=== PATIENT | male | born 1980 | race African-American/Black ===

== ENCOUNTER 2019-10-30 19:30 | Inpatient (IN) | payer MEDICAID ==
[~2019-10-30] VITALS: Ht 177.8 cm; Wt 55.3 kg
[2019-10-30 19:49] LABS: BASOPHILS % (AUTO) 0.9 % (0.0-2.0); EOSINOPHILS % (AUTO) 4.9 % (1.0-6.0); HEMATOCRIT 43.3 % (41-53); HEMOGLOBIN 14.9 g/dL (13.5-17.5); LYMPHOCYTES # (AUTO) 3.5 K/uL (1.0-4.8); LYMPHOCYTES % (AUTO) 33.3 % (22.0-44.0); MEAN CORPUSCULAR HGB CONC 34.4 G/dL (31.0-37.0); MEAN CORPUSCULAR VOLUME 90 fL (80-100); MONOCYTES % (AUTO) 9.5 % (2.0-9.0); NEUTROPHILS # (AUTO) 5.5 K/uL (1.8-7.7); NEUTROPHILS % (AUTO) 51.4 % (40.0-70.0); PLATELET COUNT (AUTO) 362 K/uL (150-450); RED CELL DISTRIBUTION WIDTH 13.8 % (11.5-14.5)
[2019-10-30] MEDS ORDERED: QUET200T PO (19:54)
[2019-10-30] MEDS ORDERED: BUSP10TA23 PO (19:54)
[2019-10-30] MEDS ORDERED: GABA-531 PO (19:54)
[2019-10-30 19:57] LABS: ANION GAP 16 mmol/L (8-16); CALCIUM, TOTAL 9.5 mg/dL (8.8-10.5); CARBON DIOXIDE 23 mmol/L (22-29); CHLORIDE 98 mmol/L (98-107); CREATININE 1.46 mg/dL (0.60-1.30); GLOMERULAR FILTR. RATE CALC > 60 mL/min (>60); GLUCOSE,RANDOM 112 mg/dL (70-110); POTASSIUM 3.5 mmol/L (3.5-5.1); SODIUM SERUM 137 mmol/L (136-145); UREA NITROGEN, BLOOD 13 mg/dL (7-18)
[2019-10-30 20:03] LABS: ALANINE AMINOTRANSFERASE 36 U/L (12-78); ALBUMIN 4.3 g/dL (3.4-5.0); ALKALINE PHOSPHATASE 125 U/L (46-116); ASPARTATE AMINOTRANSFERASE 9 U/L (15-37); BILIRUBIN,TOTAL 0.3 mg/dL (0.1-1.0); TOTAL PROTEIN, SERUM 8.6 g/dL (6.4-8.2)
[2019-10-30] MEDS ORDERED: HALOPERIDOL LACTATE 5 MG/ML VIAL IVP ONE (20:45)
[2019-10-30] MEDS ORDERED: LORazepam 2 MG/ML VIAL IM ONE (20:45)
[2019-10-30] MEDS ORDERED: SODIUM CHLORIDE 0.9% 2,000 ML IV ONE (20:45)
[2019-10-30] MEDS ORDERED: HALOPERIDOL LACTATE 5 MG/ML VIAL IM ONE (20:45)
[2019-10-30] MEDS ORDERED: LORazepam 2 MG/ML VIAL IVP ONE (20:45)
[2019-10-30] MEDS ORDERED: ASPIRIN 325 MG TABLET PO ONE (20:45)
[2019-10-30 21:21] LABS: CREATINE KINASE, TOTAL ONLY 283 U/L (39-308)
[2019-10-31] MEDS ORDERED: HALOPERIDOL 5 MG TABLET PO PRN
[2019-10-31 01:52] VITALS: BP 131/81
[2019-10-31] MEDS: LORazepam 2 MG TABLET PO PRN ×4 (04:13→17:30)
[2019-10-31] MEDS ORDERED: PNEUMOCOCCAL VACCINE POLYVALENT 0.5 ML VIAL [PPSV23] IM ONE (04:45)
[2019-10-31] MEDS ORDERED: ACETAMINOPHEN 325 MG TABLET PO PRN (08:30)
[2019-10-31] MEDS: AMOX TR/POT CLAV 875 MG/125 MG TABLET PO SCH ×2 (09:58→16:08)
[2019-10-31 10:05] VITALS: BP 124/87
[2019-10-31] MEDS ORDERED: QUET200T5 PO (13:56)
[2019-10-31] MEDS: IBUPROFEN 600 MG TABLET PO PRN (14:33)
[2019-10-31] MEDS: BusPIRone HCL 10 MG TABLET PO SCH (16:08)
[2019-10-31] MEDS: GABAPENTIN 300 MG CAPSULE PO SCH (16:08)
[2019-10-31 17:00] VITALS: BP 146/95
[2019-10-31] MEDS: QUEtiapine FUMARATE 200 MG ER TABLET PO SCH (20:41)
[2019-10-31] MEDS ORDERED: QUEtiapine FUMARATE 200 MG ER TABLET PO SCH (21:00)
[2019-10-31] MEDS: ZOLPIDEM TARTRATE 10 MG TABLET PO PRN (21:21)
[2019-11-01 02:42] VITALS: BP 146/111
[2019-11-01] MEDS: LORazepam 2 MG TABLET PO PRN ×4 (04:31→21:24)
[2019-11-01] MEDS: GABAPENTIN 300 MG CAPSULE PO SCH ×3 (08:01→16:22)
[2019-11-01] MEDS: BusPIRone HCL 10 MG TABLET PO SCH ×3 (08:02→16:23)
[2019-11-01] MEDS: AMOX TR/POT CLAV 875 MG/125 MG TABLET PO SCH ×2 (08:02→16:23)
[2019-11-01 08:42] VITALS: BP 129/94
[2019-11-01] MEDS: NICOTINE 21 MG/24 HOUR PATCH TD SCH (14:23)
[2019-11-01 17:30] VITALS: BP 142/90
[2019-11-01] MEDS: QUEtiapine FUMARATE 200 MG ER TABLET PO SCH (21:22)
[2019-11-02 08:31] VITALS: BP 102/51
[2019-11-02] MEDS: GABAPENTIN 300 MG CAPSULE PO SCH ×3 (09:21→16:19)
[2019-11-02] MEDS: AMOX TR/POT CLAV 875 MG/125 MG TABLET PO SCH ×2 (09:21→16:18)
[2019-11-02] MEDS: BusPIRone HCL 10 MG TABLET PO SCH ×3 (09:22→16:19)
[2019-11-02] MEDS: LORazepam 2 MG TABLET PO PRN ×2 (09:25→13:43)
[2019-11-02] MEDS: NICOTINE 21 MG/24 HOUR PATCH TD SCH (09:27)
[2019-11-02] MEDS: PANTOPRAZOLE SODIUM 40 MG DR TABLET PO SCH (13:59)
[2019-11-02] MEDS: HydrOXYzine PAMOATE 25 MG CAPSULE PO PRN (16:51)
[2019-11-02 17:00] VITALS: BP 137/93
[2019-11-02] MEDS: QUEtiapine FUMARATE 200 MG ER TABLET PO SCH (20:11)
[2019-11-03 00:36] VITALS: BP 155/85
[2019-11-03] MEDS: IBUPROFEN 600 MG TABLET PO PRN ×2 (00:39→16:45)
[2019-11-03] MEDS: ZOLPIDEM TARTRATE 10 MG TABLET PO PRN (00:42)
[2019-11-03 08:00] VITALS: BP 132/90
[2019-11-03] MEDS: NICOTINE 21 MG/24 HOUR PATCH TD SCH (08:53)
[2019-11-03] MEDS: GABAPENTIN 300 MG CAPSULE PO SCH ×3 (08:54→16:45)
[2019-11-03] MEDS: BusPIRone HCL 10 MG TABLET PO SCH ×3 (08:54→16:46)
[2019-11-03] MEDS: AMOX TR/POT CLAV 875 MG/125 MG TABLET PO SCH ×2 (08:54→16:46)
[2019-11-03] MEDS: PANTOPRAZOLE SODIUM 40 MG DR TABLET PO SCH (08:54)
[2019-11-03 16:40] VITALS: BP 141/98
[2019-11-03] MEDS: QUEtiapine FUMARATE 200 MG ER TABLET PO SCH (20:16)
[2019-11-03] MEDS: HydrOXYzine PAMOATE 25 MG CAPSULE PO PRN (20:23)
== END 2019-11-03 21:40 | disposition home or self-care (01) | DRG 885 ==
LOC: EMS 19:32 → 3EI 23:30
PROVIDERS: ADMIT Psychiatry & Neurology Psychiatry; ATTEND Psychiatry & Neurology Psychiatry
DX: F25.1 Schizoaffective disorder, depressive type (principal); R45.851 Suicidal ideations; F10.10 Alcohol abuse, uncomplicated; F19.10 Other psychoactive substance abuse, uncomplicated; F17.210 Nicotine dependence, cigarettes, uncomplicated; I10 Essential (primary) hypertension; F15.10 Other stimulant abuse, uncomplicated; K02.9 Dental caries, unspecified; F41.9 Anxiety disorder, unspecified; Z82.49 Family history of ischemic heart disease and other diseases of the circulatory system; Z83.3 Family history of diabetes mellitus; Z79.899 Other long term (current) drug therapy; Z91.5 Personal history of self-harm
CPT/HCPCS: 87081; 90732; 93005; G0480; J1630; J2060; J7030

== ENCOUNTER 2019-11-11 20:24 | Inpatient (IN) | payer MEDICAID ==
[~2019-11-11] VITALS: Ht 177.8 cm; Wt 104.3 kg
[~2019-11-11 20:24] MED LIST: BUSP10TA23 PO; GABA-531 PO; QUET200T5 PO
[2019-11-11] MEDS ORDERED: HYDR-4031 PO (20:30)
[2019-11-11] MEDS ORDERED: PANT40TA25 PO (20:30)
[2019-11-11] MEDS ORDERED: AMOX1TAB16 PO (20:30)
[2019-11-11] MEDS ORDERED: NICO-704 TD (20:30)
[2019-11-11] MEDS ORDERED: HALO2 PO (20:30)
[2019-11-11 22:26] LABS: BASOPHILS % (AUTO) 0.7 % (0.0-2.0); EOSINOPHILS % (AUTO) 6.6 % (1.0-6.0); HEMATOCRIT 40.2 % (41-53); HEMOGLOBIN 13.9 g/dL (13.5-17.5); LYMPHOCYTES # (AUTO) 2.1 K/uL (1.0-4.8); LYMPHOCYTES % (AUTO) 34.2 % (22.0-44.0); MEAN CORPUSCULAR HEMOGLOBIN 31.4 pg (26.0-34.0); MEAN CORPUSCULAR HGB CONC 34.5 G/dL (31.0-37.0); MEAN CORPUSCULAR VOLUME 91 fL (80-100); MONOCYTES # (AUTO) 0.5 K/uL (0.1-1.0); MONOCYTES % (AUTO) 7.7 % (2.0-9.0); NEUTROPHILS # (AUTO) 3.2 K/uL (1.8-7.7); NEUTROPHILS % (AUTO) 50.8 % (40.0-70.0); PLATELET COUNT (AUTO) 405 K/uL (150-450); RED BLOOD CELL COUNT(AUTO) 4.42 MIL/uL (4.50-5.90); RED CELL DISTRIBUTION WIDTH 13.9 % (11.5-14.5)
[2019-11-11 22:44] LABS: ANION GAP 10 mmol/L (8-16); CARBON DIOXIDE 27 mmol/L (22-29); CHLORIDE 106 mmol/L (98-107); CREATININE 1.19 mg/dL (0.60-1.30); GLOMERULAR FILTR. RATE CALC > 60 mL/min (>60); GLUCOSE,RANDOM 90 mg/dL (70-110); POTASSIUM 4.1 mmol/L (3.5-5.1); SODIUM SERUM 143 mmol/L (136-145); UREA NITROGEN, BLOOD 10 mg/dL (7-18)
[2019-11-11 22:49] LABS: ALANINE AMINOTRANSFERASE 36 U/L (12-78); ALBUMIN 3.7 g/dL (3.4-5.0); ALKALINE PHOSPHATASE 92 U/L (46-116); AMPHET/METH SCREEN,URINE NEGATIVE (NEGATIVE); ASPARTATE AMINOTRANSFERASE 12 U/L (15-37); BARBITURATE SCREEN, URINE NEGATIVE (NEGATIVE); BENZODIAZEPINES SCREEN,URINE NEGATIVE (NEGATIVE); BILIRUBIN,TOTAL 0.1 mg/dL (0.1-1.0); CANNABINOID SCREEN,URINE NEGATIVE (NEGATIVE); COCAINE SCREEN,URINE NEGATIVE (NEGATIVE); METHADONE SCREEN, URINE NEGATIVE (NEGATIVE); OPIATE SCREEN,URINE NEGATIVE (NEGATIVE); TOTAL PROTEIN, SERUM 7.5 g/dL (6.4-8.2)
[2019-11-11 22:53] LABS: PHENCYCLIDINE SCREEN,URINE NEGATIVE (NEGATIVE)
[2019-11-12] MEDS ORDERED: ZOLPIDEM TARTRATE 10 MG TABLET PO PRN
[2019-11-12] MEDS ORDERED: LORazepam 2 MG TABLET PO PRN
[2019-11-12] MEDS ORDERED: HALOPERIDOL 5 MG TABLET PO PRN
[2019-11-12 04:37] VITALS: BP 133/87
[2019-11-12] MEDS: LORazepam 2 MG TABLET PO PRN ×4 (06:55→19:19)
[2019-11-12 08:00] VITALS: BP 147/70
[2019-11-12 08:47] LABS: CHOL/HDL RATIO 6.4 (4.2-7.3)
[2019-11-12] MEDS: BusPIRone HCL 10 MG TABLET PO SCH ×3 (12:51→17:01)
[2019-11-12] MEDS: GABAPENTIN 300 MG CAPSULE PO SCH ×3 (13:18→17:01)
[2019-11-12] MEDS: NICOTINE 21 MG/24 HOUR PATCH TD SCH (14:27)
[2019-11-12] MEDS: BENZOCAINE 10% 7 GM GEL TP PRN (17:02)
[2019-11-12 18:06] VITALS: BP 105/66
[2019-11-12] MEDS: IBUPROFEN 400 MG TABLET PO PRN (19:31)
[2019-11-12] MEDS: ZOLPIDEM TARTRATE 10 MG TABLET PO PRN (20:11)
[2019-11-12] MEDS: QUEtiapine FUMARATE 200 MG ER TABLET PO SCH (20:11)
[2019-11-13 00:52] VITALS: BP 142/98
[2019-11-13] MEDS: LORazepam 2 MG TABLET PO PRN ×3 (07:01→16:06)
[2019-11-13 08:00] LABS: CHOL/HDL RATIO 7.4 (4.2-7.3)
[2019-11-13 08:35] VITALS: BP 139/97
[2019-11-13] MEDS: CLINDAMYCIN HCL 300 MG CAPSULE PO SCH ×3 (08:48→16:06)
[2019-11-13] MEDS: GABAPENTIN 300 MG CAPSULE PO SCH ×3 (08:55→16:06)
[2019-11-13] MEDS: BusPIRone HCL 10 MG TABLET PO SCH ×3 (08:55→16:06)
[2019-11-13] MEDS: NICOTINE 21 MG/24 HOUR PATCH TD SCH (09:02)
[2019-11-13] MEDS: HALOPERIDOL 5 MG TABLET PO PRN ×2 (09:35→16:06)
[2019-11-13] MEDS: IBUPROFEN 400 MG TABLET PO PRN (12:21)
[2019-11-13 16:07] VITALS: BP 124/73
[2019-11-13] MEDS: QUEtiapine FUMARATE 200 MG ER TABLET PO SCH (20:18)
[2019-11-13] MEDS: ZOLPIDEM TARTRATE 10 MG TABLET PO PRN (20:18)
[2019-11-14] MEDS: LORazepam 2 MG TABLET PO PRN ×4 (01:17→20:32)
[2019-11-14 01:18] VITALS: BP 132/77
[2019-11-14 08:15] VITALS: BP 101/61
[2019-11-14] MEDS: CLINDAMYCIN HCL 300 MG CAPSULE PO SCH ×3 (08:34→16:46)
[2019-11-14] MEDS: BusPIRone HCL 10 MG TABLET PO SCH ×3 (08:34→16:46)
[2019-11-14] MEDS: GABAPENTIN 300 MG CAPSULE PO SCH ×3 (08:34→16:46)
[2019-11-14] MEDS: NICOTINE POLACRILEX 2 MG LOZENGE PO PRN ×2 (09:42→15:44)
[2019-11-14] MEDS: HALOPERIDOL 5 MG TABLET PO PRN ×2 (12:26→16:46)
[2019-11-14 16:14] VITALS: BP 134/79
[2019-11-14] MEDS: QUEtiapine FUMARATE 200 MG ER TABLET PO SCH (20:32)
[2019-11-15 06:38] VITALS: BP 104/62
[2019-11-15 08:27] VITALS: BP 121/74
[2019-11-15] MEDS: BusPIRone HCL 10 MG TABLET PO SCH ×3 (08:51→17:37)
[2019-11-15] MEDS: CLINDAMYCIN HCL 300 MG CAPSULE PO SCH ×3 (08:51→17:00)
[2019-11-15] MEDS: GABAPENTIN 300 MG CAPSULE PO SCH ×3 (08:51→17:37)
[2019-11-15] MEDS: LORazepam 2 MG TABLET PO PRN ×3 (10:58→21:39)
[2019-11-15] MEDS: IBUPROFEN 400 MG TABLET PO PRN (10:58)
[2019-11-15 10:59] VITALS: BP 122/80
[2019-11-15 11:58] VITALS: BP 128/78
[2019-11-15 16:44] VITALS: BP 110/71
[2019-11-15] MEDS: NICOTINE POLACRILEX 2 MG LOZENGE PO PRN (17:37)
[2019-11-15] MEDS: ZOLPIDEM TARTRATE 10 MG TABLET PO PRN (20:13)
[2019-11-15] MEDS: QUEtiapine FUMARATE 200 MG ER TABLET PO SCH (20:13)
[2019-11-16 05:54] VITALS: BP 134/92
[2019-11-16] MEDS: LORazepam 2 MG TABLET PO PRN ×4 (06:39→20:39)
[2019-11-16] MEDS: CLINDAMYCIN HCL 300 MG CAPSULE PO SCH ×3 (08:21→16:08)
[2019-11-16] MEDS: BuPROPion HCL XL 150 MG ER TABLET PO SCH (08:22)
[2019-11-16] MEDS: BusPIRone HCL 10 MG TABLET PO SCH ×3 (08:22→16:08)
[2019-11-16] MEDS: GABAPENTIN 300 MG CAPSULE PO SCH ×3 (08:22→16:08)
[2019-11-16 10:53] VITALS: BP 135/63
[2019-11-16] MEDS: IBUPROFEN 400 MG TABLET PO PRN (10:53)
[2019-11-16] MEDS: NICOTINE POLACRILEX 2 MG LOZENGE PO PRN ×2 (13:33→20:39)
[2019-11-16] MEDS: HALOPERIDOL 5 MG TABLET PO PRN (16:08)
[2019-11-16 16:17] VITALS: BP 132/77
[2019-11-16] MEDS: QUEtiapine FUMARATE 200 MG ER TABLET PO SCH (20:29)
[2019-11-16] MEDS: ZOLPIDEM TARTRATE 10 MG TABLET PO PRN (20:29)
[2019-11-17 00:19] VITALS: BP 123/79
[2019-11-17] MEDS: LORazepam 2 MG TABLET PO PRN ×4 (02:34→18:20)
[2019-11-17 08:00] VITALS: BP 103/76
[2019-11-17] MEDS: BusPIRone HCL 10 MG TABLET PO SCH ×3 (08:09→16:31)
[2019-11-17] MEDS: BuPROPion HCL XL 150 MG ER TABLET PO SCH (08:09)
[2019-11-17] MEDS: GABAPENTIN 300 MG CAPSULE PO SCH ×3 (08:09→16:32)
[2019-11-17] MEDS: CLINDAMYCIN HCL 300 MG CAPSULE PO SCH ×3 (08:09→16:32)
[2019-11-17] MEDS: IBUPROFEN 400 MG TABLET PO PRN (10:42)
[2019-11-17 10:45] VITALS: BP 128/85
[2019-11-17] MEDS: NICOTINE POLACRILEX 2 MG LOZENGE PO PRN (14:19)
[2019-11-17 16:00] VITALS: BP 132/74
[2019-11-17] MEDS: HALOPERIDOL 5 MG TABLET PO PRN (16:31)
[2019-11-17] MEDS: QUEtiapine FUMARATE 300 MG ER TABLET PO SCH (21:09)
[2019-11-18 02:10] VITALS: BP 118/79
[2019-11-18] MEDS: LORazepam 2 MG TABLET PO PRN ×4 (02:36→20:34)
[2019-11-18 08:00] VITALS: BP 121/53
[2019-11-18] MEDS: NALTREXONE HCL 50 MG TABLET PO SCH (08:25)
[2019-11-18] MEDS: GABAPENTIN 300 MG CAPSULE PO SCH ×3 (08:26→16:03)
[2019-11-18] MEDS: BusPIRone HCL 10 MG TABLET PO SCH ×3 (08:26→16:02)
[2019-11-18] MEDS ORDERED: BuPROPion HCL XL 150 MG ER TABLET PO SCH (09:00)
[2019-11-18] MEDS: NICOTINE POLACRILEX 2 MG LOZENGE PO PRN ×3 (09:23→21:15)
[2019-11-18] MEDS: CLINDAMYCIN HCL 300 MG CAPSULE PO SCH ×3 (10:01→16:02)
[2019-11-18] MEDS: IBUPROFEN 400 MG TABLET PO PRN ×2 (14:34→21:34)
[2019-11-18] MEDS ORDERED: HALOPERIDOL LACTATE 5 MG/ML VIAL ONE (15:48)
[2019-11-18] MEDS ORDERED: LORazepam 2 MG/ML VIAL ONE (15:48)
[2019-11-18] MEDS ORDERED: DiphenhydrAMINE HCL 50 MG/ML VIAL ONE (15:48)
[2019-11-18 16:10] VITALS: BP 133/79
[2019-11-18] MEDS ORDERED: LORazepam 2 MG/ML VIAL IM ONE (16:45)
[2019-11-18] MEDS ORDERED: DiphenhydrAMINE HCL 50 MG/ML VIAL IM ONE (16:45)
[2019-11-18] MEDS ORDERED: HALOPERIDOL LACTATE 5 MG/ML VIAL IM ONE (16:45)
[2019-11-18] MEDS: QUEtiapine FUMARATE 300 MG ER TABLET PO SCH (20:33)
[2019-11-18] MEDS: ZOLPIDEM TARTRATE 10 MG TABLET PO PRN (21:15)
[2019-11-18 21:34] VITALS: BP 137/88
[2019-11-19 00:31] VITALS: BP 122/92
[2019-11-19 08:16] VITALS: BP 149/91
[2019-11-19] MEDS: CLINDAMYCIN HCL 300 MG CAPSULE PO SCH ×3 (08:20→16:49)
[2019-11-19] MEDS: BusPIRone HCL 15 MG TABLET PO SCH ×2 (08:20→12:08)
[2019-11-19] MEDS: MULTIVITAMINS WITH MINERALS, THERAPEUTIC TABLET PO SCH (08:20)
[2019-11-19] MEDS: OMEGA-3/DHA/EPA/FISH OIL 1,000 MG CAPSULE PO SCH (08:20)
[2019-11-19] MEDS: GABAPENTIN 400 MG CAPSULE PO SCH ×3 (08:21→16:49)
[2019-11-19] MEDS: NALTREXONE HCL 50 MG TABLET PO SCH (08:22)
[2019-11-19] MEDS: THIAMINE HCL 100 MG TABLET PO SCH (08:22)
[2019-11-19] MEDS: HALOPERIDOL 5 MG TABLET PO PRN (08:49)
[2019-11-19] MEDS: LORazepam 2 MG TABLET PO PRN ×3 (08:49→17:19)
[2019-11-19] MEDS ORDERED: QUEtiapine FUMARATE 25 MG TABLET PO SCH (09:00)
[2019-11-19] MEDS: FOLIC ACID 1 MG TABLET PO SCH (12:33)
[2019-11-19] MEDS: IBUPROFEN 400 MG TABLET PO PRN (13:18)
[2019-11-19 16:21] VITALS: BP 136/72
[2019-11-19] MEDS: QUEtiapine FUMARATE 25 MG TABLET PO SCH (16:49)
[2019-11-19] MEDS: BusPIRone HCL 10 MG TABLET PO SCH (16:49)
[2019-11-19] MEDS: ZOLPIDEM TARTRATE 10 MG TABLET PO PRN (20:37)
[2019-11-19] MEDS: QUEtiapine FUMARATE 200 MG ER TABLET PO SCH (20:37)
[2019-11-19] MEDS: QUEtiapine FUMARATE 300 MG ER TABLET PO SCH (20:37)
[2019-11-20] MEDS: LORazepam 2 MG TABLET PO PRN ×3 (04:34→17:35)
[2019-11-20] MEDS: IBUPROFEN 400 MG TABLET PO PRN (04:34)
[2019-11-20 04:35] VITALS: BP 128/71
[2019-11-20] MEDS: CLINDAMYCIN HCL 300 MG CAPSULE PO SCH ×3 (08:30→17:01)
[2019-11-20] MEDS: MULTIVITAMINS WITH MINERALS, THERAPEUTIC TABLET PO SCH (08:30)
[2019-11-20] MEDS: THIAMINE HCL 100 MG TABLET PO SCH (08:30)
[2019-11-20] MEDS: OMEGA-3/DHA/EPA/FISH OIL 1,000 MG CAPSULE PO SCH (08:30)
[2019-11-20] MEDS: BusPIRone HCL 10 MG TABLET PO SCH ×3 (08:30→17:01)
[2019-11-20] MEDS: NALTREXONE HCL 50 MG TABLET PO SCH (08:30)
[2019-11-20] MEDS: GABAPENTIN 400 MG CAPSULE PO SCH ×4 (08:30→20:41)
[2019-11-20] MEDS: FOLIC ACID 1 MG TABLET PO SCH (08:31)
[2019-11-20] MEDS: QUEtiapine FUMARATE 25 MG TABLET PO SCH ×2 (08:31→17:02)
[2019-11-20] MEDS: NICOTINE 21 MG/24 HOUR PATCH TD SCH (09:52)
[2019-11-20 10:19] VITALS: BP 134/88
[2019-11-20 11:19] VITALS: BP 134/88
[2019-11-20 16:15] VITALS: BP 140/82
[2019-11-20] MEDS: HALOPERIDOL 5 MG TABLET PO PRN (19:39)
[2019-11-20] MEDS: QUEtiapine FUMARATE 200 MG ER TABLET PO SCH (20:41)
[2019-11-20] MEDS: DIVALPROEX SODIUM 500 MG ER TABLET PO SCH (20:43)
[2019-11-20] MEDS: QUEtiapine FUMARATE 300 MG ER TABLET PO SCH (20:44)
[2019-11-20] MEDS: ZOLPIDEM TARTRATE 10 MG TABLET PO PRN (22:29)
[2019-11-21 00:52] VITALS: BP 141/99
[2019-11-21] MEDS: CLINDAMYCIN HCL 300 MG CAPSULE PO SCH ×3 (08:13→16:12)
[2019-11-21] MEDS: BusPIRone HCL 10 MG TABLET PO SCH ×3 (08:13→16:12)
[2019-11-21] MEDS: MULTIVITAMINS WITH MINERALS, THERAPEUTIC TABLET PO SCH (08:13)
[2019-11-21] MEDS: BuPROPion HCL 75 MG TABLET PO SCH (08:13)
[2019-11-21] MEDS: GABAPENTIN 400 MG CAPSULE PO SCH ×4 (08:13→20:10)
[2019-11-21] MEDS: FOLIC ACID 1 MG TABLET PO SCH (08:13)
[2019-11-21] MEDS: THIAMINE HCL 100 MG TABLET PO SCH (08:13)
[2019-11-21] MEDS: NALTREXONE HCL 50 MG TABLET PO SCH (08:13)
[2019-11-21] MEDS: OMEGA-3/DHA/EPA/FISH OIL 1,000 MG CAPSULE PO SCH (08:13)
[2019-11-21] MEDS: QUEtiapine FUMARATE 25 MG TABLET PO SCH ×2 (08:13→16:12)
[2019-11-21] MEDS: NICOTINE 21 MG/24 HOUR PATCH TD SCH (08:14)
[2019-11-21 08:56] VITALS: BP 139/93
[2019-11-21] MEDS: LORazepam 2 MG TABLET PO PRN ×3 (09:28→19:33)
[2019-11-21] MEDS: IBUPROFEN 400 MG TABLET PO PRN ×2 (09:29→20:11)
[2019-11-21] MEDS: BENZOCAINE 10% 7 GM GEL TP PRN (11:13)
[2019-11-21] MEDS: AMOX TR/POT CLAV 500 MG/125 MG TABLET PO SCH ×2 (12:18→16:12)
[2019-11-21 13:18] VITALS: BP 138/88
[2019-11-21] MEDS: OxyCODONE HCL/ACETAMINOPHEN 5-325 MG TABLET PO PRN (13:18)
[2019-11-21 16:53] VITALS: BP 115/71
[2019-11-21] MEDS: QUEtiapine FUMARATE 300 MG ER TABLET PO SCH (20:10)
[2019-11-21] MEDS: QUEtiapine FUMARATE 200 MG ER TABLET PO SCH (20:10)
[2019-11-21] MEDS: DIVALPROEX SODIUM 500 MG ER TABLET PO SCH (20:10)
[2019-11-21 20:11] VITALS: BP 124/78
[2019-11-22 00:53] VITALS: BP 140/90
[2019-11-22 04:01] VITALS: BP 132/81
[2019-11-22] MEDS: OxyCODONE HCL/ACETAMINOPHEN 5-325 MG TABLET PO PRN ×2 (04:04→16:29)
[2019-11-22] MEDS: LORazepam 2 MG TABLET PO PRN ×4 (04:59→21:00)
[2019-11-22] MEDS: CLINDAMYCIN HCL 300 MG CAPSULE PO SCH ×3 (08:07→16:29)
[2019-11-22] MEDS: FOLIC ACID 1 MG TABLET PO SCH (08:07)
[2019-11-22] MEDS: THIAMINE HCL 100 MG TABLET PO SCH (08:07)
[2019-11-22] MEDS: BuPROPion HCL 75 MG TABLET PO SCH (08:07)
[2019-11-22] MEDS: GABAPENTIN 400 MG CAPSULE PO SCH ×4 (08:07→20:02)
[2019-11-22] MEDS: MULTIVITAMINS WITH MINERALS, THERAPEUTIC TABLET PO SCH (08:07)
[2019-11-22] MEDS: QUEtiapine FUMARATE 25 MG TABLET PO SCH ×2 (08:07→16:29)
[2019-11-22] MEDS: AMOX TR/POT CLAV 500 MG/125 MG TABLET PO SCH ×3 (08:08→16:29)
[2019-11-22] MEDS: OMEGA-3/DHA/EPA/FISH OIL 1,000 MG CAPSULE PO SCH (08:08)
[2019-11-22] MEDS: BusPIRone HCL 10 MG TABLET PO SCH ×3 (08:08→16:29)
[2019-11-22] MEDS: NICOTINE 21 MG/24 HOUR PATCH TD SCH (08:09)
[2019-11-22 08:30] VITALS: BP 131/88
[2019-11-22] MEDS: NALTREXONE HCL 50 MG TABLET PO SCH (09:00)
[2019-11-22 16:29] VITALS: BP 134/71
[2019-11-22] MEDS: QUEtiapine FUMARATE 200 MG ER TABLET PO SCH (20:02)
[2019-11-22] MEDS: QUEtiapine FUMARATE 300 MG ER TABLET PO SCH (20:02)
[2019-11-22] MEDS: DIVALPROEX SODIUM 500 MG ER TABLET PO SCH (20:02)
[2019-11-23 03:20] VITALS: BP 134/92
[2019-11-23] MEDS: IBUPROFEN 400 MG TABLET PO PRN (03:23)
[2019-11-23 04:23] VITALS: BP 136/90
[2019-11-23 04:46] VITALS: BP 135/86
[2019-11-23] MEDS: OxyCODONE HCL/ACETAMINOPHEN 5-325 MG TABLET PO PRN ×2 (04:48→15:27)
[2019-11-23] MEDS: LORazepam 2 MG TABLET PO PRN ×4 (06:32→21:06)
[2019-11-23] MEDS: NICOTINE 21 MG/24 HOUR PATCH TD SCH (08:10)
[2019-11-23] MEDS: AMOX TR/POT CLAV 500 MG/125 MG TABLET PO SCH ×3 (08:11→16:22)
[2019-11-23] MEDS: OMEGA-3/DHA/EPA/FISH OIL 1,000 MG CAPSULE PO SCH (08:11)
[2019-11-23] MEDS: BusPIRone HCL 10 MG TABLET PO SCH ×3 (08:11→16:23)
[2019-11-23] MEDS: THIAMINE HCL 100 MG TABLET PO SCH (08:11)
[2019-11-23] MEDS: QUEtiapine FUMARATE 25 MG TABLET PO SCH ×2 (08:12→16:56)
[2019-11-23] MEDS: BuPROPion HCL 75 MG TABLET PO SCH (08:12)
[2019-11-23] MEDS: GABAPENTIN 400 MG CAPSULE PO SCH ×4 (08:12→20:27)
[2019-11-23] MEDS: FOLIC ACID 1 MG TABLET PO SCH (08:12)
[2019-11-23] MEDS: MULTIVITAMINS WITH MINERALS, THERAPEUTIC TABLET PO SCH (08:13)
[2019-11-23] MEDS: FLUTICASONE PROPIONATE 50 MCG/SPRAY 16 GM NASAL SPRAY NASAL PRN ×2 (08:18→20:30)
[2019-11-23 08:40] VITALS: BP 140/100
[2019-11-23 16:23] VITALS: BP 140/83
[2019-11-23] MEDS: DIVALPROEX SODIUM 500 MG ER TABLET PO SCH (20:26)
[2019-11-23] MEDS: QUEtiapine FUMARATE 200 MG ER TABLET PO SCH (20:27)
[2019-11-23] MEDS: QUEtiapine FUMARATE 300 MG ER TABLET PO SCH (20:27)
[2019-11-24 01:05] VITALS: BP 128/84
[2019-11-24] MEDS: OxyCODONE HCL/ACETAMINOPHEN 5-325 MG TABLET PO PRN ×2 (04:20→16:35)
[2019-11-24] MEDS: LORazepam 2 MG TABLET PO PRN (05:41)
[2019-11-24] MEDS: AMOX TR/POT CLAV 500 MG/125 MG TABLET PO SCH ×3 (08:11→16:33)
[2019-11-24] MEDS: QUEtiapine FUMARATE 25 MG TABLET PO SCH (08:11)
[2019-11-24] MEDS: GABAPENTIN 400 MG CAPSULE PO SCH ×4 (08:11→20:45)
[2019-11-24] MEDS: MULTIVITAMINS WITH MINERALS, THERAPEUTIC TABLET PO SCH (08:11)
[2019-11-24] MEDS: FOLIC ACID 1 MG TABLET PO SCH (08:11)
[2019-11-24] MEDS: BuPROPion HCL 75 MG TABLET PO SCH (08:11)
[2019-11-24] MEDS: BusPIRone HCL 10 MG TABLET PO SCH ×3 (08:12→16:33)
[2019-11-24] MEDS: THIAMINE HCL 100 MG TABLET PO SCH (08:12)
[2019-11-24] MEDS: OMEGA-3/DHA/EPA/FISH OIL 1,000 MG CAPSULE PO SCH (08:12)
[2019-11-24 08:15] VITALS: BP 139/96
[2019-11-24] MEDS: NICOTINE 21 MG/24 HOUR PATCH TD SCH (08:16)
[2019-11-24] MEDS: FLUTICASONE PROPIONATE 50 MCG/SPRAY 16 GM NASAL SPRAY NASAL PRN (10:30)
[2019-11-24] MEDS: LORazepam 0.5 MG TABLET PO PRN ×2 (11:49→17:56)
[2019-11-24 16:22] VITALS: BP 134/85
[2019-11-24] MEDS: DIVALPROEX SODIUM 500 MG ER TABLET PO SCH (20:45)
[2019-11-24] MEDS ORDERED: QUEtiapine FUMARATE 300 MG ER TABLET PO SCH (21:00)
[2019-11-25 00:56] VITALS: BP 141/77
[2019-11-25] MEDS: IBUPROFEN 400 MG TABLET PO PRN (00:57)
[2019-11-25] MEDS ORDERED: QUET300T5 PO (01:52)
[2019-11-25] MEDS ORDERED: PROZ10 PO (01:52)
[2019-11-25] MEDS ORDERED: DIVA500T52 PO (01:52)
[2019-11-25] MEDS ORDERED: GABA-533 PO (01:52)
[2019-11-25] MEDS ORDERED: BUSP10TA23 PO (02:05)
[2019-11-25] MEDS ORDERED: MULT-723 PO (02:05)
[2019-11-25] MEDS ORDERED: AMOX1TAB15 PO (02:05)
[2019-11-25] MEDS ORDERED: THIA100T75 PO (02:05)
[2019-11-25] MEDS ORDERED: OMEG-135 PO (02:05)
[2019-11-25] MEDS ORDERED: NICO-650 TP (02:05)
[2019-11-25] MEDS: LORazepam 0.5 MG TABLET PO PRN (02:52)
[2019-11-25 05:22] VITALS: BP 144/98
[2019-11-25] MEDS: OxyCODONE HCL/ACETAMINOPHEN 5-325 MG TABLET PO PRN (05:26)
[2019-11-25] MEDS ORDERED: FLUoxetine HCL 20 MG CAPSULE PO SCH (09:00)
== END 2019-11-25 07:45 | disposition home or self-care (01) | DRG 750 ==
LOC: EMS 20:25 → B3A 11-12 01:42 → B2S 11-20 08:36
PROVIDERS: ADMIT Psychiatry & Neurology Psychiatry; ATTEND Psychiatry & Neurology Psychiatry
DX: F25.1 Schizoaffective disorder, depressive type (principal); R45.851 Suicidal ideations; E78.5 Hyperlipidemia, unspecified; F10.10 Alcohol abuse, uncomplicated; F41.9 Anxiety disorder, unspecified; I10 Essential (primary) hypertension; K02.9 Dental caries, unspecified; F17.210 Nicotine dependence, cigarettes, uncomplicated; K21.9 Gastro-esophageal reflux disease without esophagitis; Z79.899 Other long term (current) drug therapy; Z91.5 Personal history of self-harm; Z71.6 Tobacco abuse counseling
CPT/HCPCS: 87081; 93005; G0480; J1200; J1630; J2060

== ENCOUNTER 2020-01-08 18:50 | Inpatient (IN) | payer MEDICAID ==
[~2020-01-08] VITALS: Ht 177.8 cm; Wt 111.3 kg
[~2020-01-08 18:50] MED LIST changes: +AMOX1TAB15 PO; +CHLO50 PO; +DIPH25CA85 PO; +DIVA500T52 PO; -GABA-531 PO; +GABA-533 PO; +MULT-723 PO; +NICO-650 TP; +OMEG-135 PO; +PROP40TA7 PO; +PROZ10 PO; +QUET300T5 PO; +THIA100T75 PO
[2020-01-08 19:37] VITALS: BP 152/87
[2020-01-08] MEDS ORDERED: PROPRANOLOL HCL 40 MG TABLET PO SCH (20:00)
[2020-01-08] MEDS ORDERED: -PHARMACY VACCINE NOTE- MISC ONE (20:30)
[2020-01-08] MEDS: LORazepam 2 MG TABLET PO PRN (20:31)
[2020-01-08] MEDS ORDERED: QUEtiapine FUMARATE 300 MG TABLET PO SCH (21:00)
[2020-01-08] MEDS ORDERED: PROPRANOLOL HCL 10 MG TABLET PO SCH (21:30)
[2020-01-09 01:38] VITALS: BP 119/74
[2020-01-09] MEDS: QUEtiapine FUMARATE 100 MG TABLET PO PRN ×2 (02:28→07:56)
[2020-01-09] MEDS: LORazepam 2 MG TABLET PO PRN ×3 (02:28→16:00)
[2020-01-09] MEDS: NICOTINE 21 MG/24 HOUR PATCH TD SCH (07:56)
[2020-01-09 08:26] VITALS: BP 106/86
[2020-01-09] MEDS ORDERED: LOPERAMIDE HCL 2 MG CAPSULE PO PRN (08:30)
[2020-01-09] MEDS ORDERED: GuaiFENesin/D-METHORPHAN [SUGAR-FREE] 200-20MG/10 ML SYRUP UDCUP PO PRN (08:30)
[2020-01-09] MEDS ORDERED: DOCUSATE SODIUM 100 MG CAPSULE PO PRN (08:30)
[2020-01-09] MEDS ORDERED: CloNIDine HCL 0.1 MG TABLET PO PRN (08:30)
[2020-01-09] MEDS ORDERED: MAGNESIUM HYDROXIDE SUSPENSION 30 ML UDCUP PO PRN (08:30)
[2020-01-09] MEDS ORDERED: MAG HYDROX/AL HYDROX/SIMETH ES 30 ML SUSPENSION UDCUP PO PRN (08:30)
[2020-01-09] MEDS ORDERED: ALBUTEROL SULFATE HFA 90 MCG/PUFF 8 GM INHALER IH PRN (08:30)
[2020-01-09] MEDS ORDERED: ONDANSETRON HCL 4 MG TABLET PO PRN (08:30)
[2020-01-09] MEDS ORDERED: NICOTINE 14 MG/24 HOUR PATCH TD PRN (08:30)
[2020-01-09] MEDS ORDERED: PETROLATUM,WHITE 28 GM JELLY TP PRN (08:30)
[2020-01-09 09:10] VITALS: BP 113/69
[2020-01-09] MEDS: PROPRANOLOL HCL 40 MG TABLET PO SCH (09:11)
[2020-01-09 09:42] LABS: HEMOGLOBIN A1C 5.6 % (3.8-5.6)
[2020-01-09 09:51] LABS: CHOL/HDL RATIO 4.8 (4.2-7.3); CHOLESTEROL 221 mg/dL (131-200); HCG,QUANTITATIVE < 1 mIU/mL (0-6); HDL CHOLESTEROL 46 mg/dL (40-60); LDL CHOL (CALC.) 151 mg/dL (0-130); TRIGLYCERIDES 122 mg/dL (15-150)
[2020-01-09 11:38] LABS: BASOPHILS % (AUTO) 0.4 % (0.0-2.0); EOSINOPHILS % (AUTO) 4.5 % (1.0-6.0); HEMATOCRIT 46.5 % (41-53); HEMOGLOBIN 15.8 g/dL (13.5-17.5); LYMPHOCYTES # (AUTO) 2.1 K/uL (1.0-4.8); LYMPHOCYTES % (AUTO) 25.4 % (22.0-44.0); MEAN CORPUSCULAR HEMOGLOBIN 31.4 pg (26.0-34.0); MEAN CORPUSCULAR VOLUME 92 fL (80-100); MONOCYTES # (AUTO) 0.7 K/uL (0.1-1.0); MONOCYTES % (AUTO) 8.3 % (2.0-9.0); NEUTROPHILS % (AUTO) 61.4 % (40.0-70.0); PLATELET COUNT (AUTO) 454 K/uL (150-450); RED BLOOD CELL COUNT(AUTO) 5.03 MIL/uL (4.50-5.90)
[2020-01-09 11:46] LABS: ALANINE AMINOTRANSFERASE 31 U/L (12-78); ALBUMIN 4.5 g/dL (3.4-5.0); ALKALINE PHOSPHATASE 98 U/L (46-116); ANION GAP 14 mmol/L (8-16); ASPARTATE AMINOTRANSFERASE 22 U/L (15-37); BILIRUBIN,TOTAL 0.4 mg/dL (0.1-1.0); CALCIUM, TOTAL 9.9 mg/dL (8.8-10.5); CARBON DIOXIDE 22 mmol/L (22-29); CHLORIDE 100 mmol/L (98-107); CREATININE 1.39 mg/dL (0.60-1.30); GLOMERULAR FILTR. RATE CALC > 60 mL/min (>60); GLUCOSE,RANDOM 117 mg/dL (70-110); SODIUM SERUM 136 mmol/L (136-145); THYROID STIMULATING HORMONE 1.97 uIU/mL (0.36-3.74); TOTAL PROTEIN, SERUM 8.9 g/dL (6.4-8.2); UREA NITROGEN, BLOOD 14 mg/dL (7-18)
[2020-01-09] MEDS: BuPROPion HCL XL 150 MG ER TABLET PO SCH (17:18)
[2020-01-09 17:31] VITALS: BP 105/70
[2020-01-09] MEDS: QUEtiapine FUMARATE 100 MG TABLET PO SCH (20:03)
[2020-01-09] MEDS: LORazepam 0.5 MG TABLET PO PRN (21:01)
[2020-01-10 03:52] VITALS: BP 130/69
[2020-01-10] MEDS: LORazepam 0.5 MG TABLET PO PRN ×2 (04:03→12:57)
[2020-01-10] MEDS: IBUPROFEN 400 MG TABLET PO PRN (06:17)
[2020-01-10 08:11] VITALS: BP 121/71
[2020-01-10] MEDS: PROPRANOLOL HCL 40 MG TABLET PO SCH (08:51)
[2020-01-10] MEDS: BuPROPion HCL XL 150 MG ER TABLET PO SCH (08:51)
[2020-01-10] MEDS: NICOTINE 21 MG/24 HOUR PATCH TD SCH (08:51)
[2020-01-10 16:18] VITALS: BP 136/71
[2020-01-10] MEDS: QUEtiapine FUMARATE 100 MG TABLET PO SCH (20:23)
[2020-01-11 05:36] VITALS: BP 122/73
[2020-01-11] MEDS: BuPROPion HCL XL 150 MG ER TABLET PO SCH (09:00)
[2020-01-11] MEDS: PROPRANOLOL HCL 40 MG TABLET PO SCH (09:00)
[2020-01-11] MEDS: NICOTINE 21 MG/24 HOUR PATCH TD SCH (09:01)
[2020-01-11 09:06] VITALS: BP 118/78
[2020-01-11] MEDS ORDERED: CYANOCOBALAMIN 1,000 MCG/ML VIAL IM ONE (10:30)
[2020-01-11] MEDS ORDERED: LOPERAMIDE HCL 2 MG CAPSULE PO PRN (10:30)
[2020-01-11] MEDS ORDERED: HydrOXYzine PAMOATE 50 MG CAPSULE PO PRN (10:30)
[2020-01-11] MEDS ORDERED: GuaiFENesin/D-METHORPHAN [SUGAR-FREE] 200-20MG/10 ML SYRUP UDCUP PO PRN (10:30)
[2020-01-11] MEDS: THIAMINE HCL 100 MG TABLET PO SCH ×2 (10:57→17:26)
[2020-01-11] MEDS: MULTIVITAMINS WITH MINERALS, THERAPEUTIC TABLET PO SCH (10:57)
[2020-01-11] MEDS: FOLIC ACID 1 MG TABLET PO SCH (10:57)
[2020-01-11] MEDS: LORazepam 0.5 MG TABLET PO PRN ×2 (12:27→17:25)
[2020-01-11 16:43] VITALS: BP 101/63
[2020-01-11] MEDS: IBUPROFEN 400 MG TABLET PO PRN (20:00)
[2020-01-11] MEDS: QUEtiapine FUMARATE 100 MG TABLET PO SCH (20:50)
[2020-01-11] MEDS: ZOLPIDEM TARTRATE 10 MG TABLET PO PRN (20:51)
[2020-01-12 05:40] VITALS: BP 127/76
[2020-01-12] MEDS: PROPRANOLOL HCL 40 MG TABLET PO SCH (08:53)
[2020-01-12] MEDS: FOLIC ACID 1 MG TABLET PO SCH (08:53)
[2020-01-12] MEDS: MULTIVITAMINS WITH MINERALS, THERAPEUTIC TABLET PO SCH (08:53)
[2020-01-12] MEDS: NICOTINE 21 MG/24 HOUR PATCH TD SCH (08:53)
[2020-01-12] MEDS: BuPROPion HCL XL 150 MG ER TABLET PO SCH (08:53)
[2020-01-12] MEDS: THIAMINE HCL 100 MG TABLET PO SCH ×2 (08:53→16:37)
[2020-01-12 10:14] VITALS: BP 134/68
[2020-01-12] MEDS: LORazepam 0.5 MG TABLET PO PRN ×2 (12:16→17:01)
[2020-01-12 16:39] VITALS: BP_SYST 129; BP_SYST 138; BP_DIAS 110; BP_DIAS 80
[2020-01-12] MEDS: IBUPROFEN 400 MG TABLET PO PRN (18:20)
[2020-01-12] MEDS: QUEtiapine FUMARATE 100 MG TABLET PO SCH (20:02)
[2020-01-12] MEDS: ZOLPIDEM TARTRATE 10 MG TABLET PO PRN (20:02)
[2020-01-13 05:33] VITALS: BP 130/72
[2020-01-13] MEDS: THIAMINE HCL 100 MG TABLET PO SCH ×2 (08:50→16:24)
[2020-01-13] MEDS: MULTIVITAMINS WITH MINERALS, THERAPEUTIC TABLET PO SCH (08:50)
[2020-01-13] MEDS: BuPROPion HCL XL 150 MG ER TABLET PO SCH (08:50)
[2020-01-13] MEDS: FOLIC ACID 1 MG TABLET PO SCH (08:50)
[2020-01-13] MEDS: PROPRANOLOL HCL 40 MG TABLET PO SCH (08:51)
[2020-01-13] MEDS: NICOTINE 21 MG/24 HOUR PATCH TD SCH (08:55)
[2020-01-13 09:50] VITALS: BP 126/78
[2020-01-13] MEDS: LORazepam 1 MG TABLET PO PRN ×2 (11:44→16:24)
[2020-01-13 16:33] VITALS: BP 127/68
[2020-01-13] MEDS: IBUPROFEN 400 MG TABLET PO PRN (16:57)
[2020-01-13 17:57] VITALS: BP 124/72
[2020-01-13] MEDS: QUEtiapine FUMARATE 100 MG TABLET PO PRN (19:13)
[2020-01-13] MEDS: QUEtiapine FUMARATE 100 MG TABLET PO SCH (20:38)
[2020-01-13] MEDS: ZOLPIDEM TARTRATE 10 MG TABLET PO PRN (20:44)
[2020-01-14 01:34] VITALS: BP 125/83
[2020-01-14 08:07] VITALS: BP 117/68
[2020-01-14] MEDS: PROPRANOLOL HCL 40 MG TABLET PO SCH (08:37)
[2020-01-14] MEDS: THIAMINE HCL 100 MG TABLET PO SCH ×2 (08:37→16:03)
[2020-01-14] MEDS: FOLIC ACID 1 MG TABLET PO SCH (08:37)
[2020-01-14] MEDS: MULTIVITAMINS WITH MINERALS, THERAPEUTIC TABLET PO SCH (08:37)
[2020-01-14] MEDS: BuPROPion HCL XL 150 MG ER TABLET PO SCH (08:37)
[2020-01-14] MEDS: NICOTINE 21 MG/24 HOUR PATCH TD SCH (08:42)
[2020-01-14] MEDS: QUEtiapine FUMARATE 100 MG TABLET PO PRN ×2 (09:34→18:12)
[2020-01-14] MEDS: LORazepam 1 MG TABLET PO PRN ×3 (09:34→20:22)
[2020-01-14 16:22] VITALS: BP 117/74
[2020-01-14] MEDS: QUEtiapine FUMARATE 100 MG TABLET PO SCH (20:18)
[2020-01-15 01:03] VITALS: BP 121/77
[2020-01-15] MEDS: BuPROPion HCL XL 150 MG ER TABLET PO SCH (08:50)
[2020-01-15] MEDS: THIAMINE HCL 100 MG TABLET PO SCH ×2 (08:50→16:06)
[2020-01-15] MEDS: PROPRANOLOL HCL 40 MG TABLET PO SCH (08:50)
[2020-01-15] MEDS: FOLIC ACID 1 MG TABLET PO SCH (08:50)
[2020-01-15] MEDS: MULTIVITAMINS WITH MINERALS, THERAPEUTIC TABLET PO SCH (08:50)
[2020-01-15] MEDS: NICOTINE 21 MG/24 HOUR PATCH TD SCH ×2 (08:54→11:03)
[2020-01-15 09:01] VITALS: BP 115/65
[2020-01-15] MEDS: QUEtiapine FUMARATE 100 MG TABLET PO PRN ×2 (11:01→15:40)
[2020-01-15] MEDS: LORazepam 1 MG TABLET PO PRN ×2 (11:01→15:40)
[2020-01-15 16:40] VITALS: BP 136/85
[2020-01-15] MEDS: QUEtiapine FUMARATE 100 MG TABLET PO SCH (20:12)
[2020-01-15] MEDS: ZOLPIDEM TARTRATE 10 MG TABLET PO PRN (21:02)
[2020-01-15 21:31] VITALS: BP 128/82
[2020-01-15] MEDS: IBUPROFEN 400 MG TABLET PO PRN (21:31)
[2020-01-16 05:16] VITALS: BP 127/77
[2020-01-16 08:09] VITALS: BP 144/72
[2020-01-16] MEDS: FOLIC ACID 1 MG TABLET PO SCH (08:58)
[2020-01-16] MEDS: PROPRANOLOL HCL 40 MG TABLET PO SCH (08:58)
[2020-01-16] MEDS: MULTIVITAMINS WITH MINERALS, THERAPEUTIC TABLET PO SCH (08:58)
[2020-01-16] MEDS: THIAMINE HCL 100 MG TABLET PO SCH ×2 (08:58→16:04)
[2020-01-16] MEDS: BuPROPion HCL XL 150 MG ER TABLET PO SCH (08:58)
[2020-01-16] MEDS: NICOTINE 21 MG/24 HOUR PATCH TD SCH (08:58)
[2020-01-16] MEDS: LORazepam 1 MG TABLET PO PRN ×3 (09:08→19:53)
[2020-01-16] MEDS: QUEtiapine FUMARATE 100 MG TABLET PO PRN (09:08)
[2020-01-16] MEDS: IBUPROFEN 400 MG TABLET PO PRN ×2 (09:37→19:52)
[2020-01-16] MEDS: BENZOCAINE 10% 7 GM GEL TP SCH ×2 (10:25→16:04)
[2020-01-16] MEDS: BusPIRone HCL 15 MG TABLET PO SCH (16:04)
[2020-01-16 16:13] VITALS: BP 117/72
[2020-01-16] MEDS: ACETAMINOPHEN 325 MG TABLET PO PRN (17:11)
[2020-01-16] MEDS: QUEtiapine FUMARATE 100 MG TABLET PO SCH (20:09)
[2020-01-16] MEDS: ZOLPIDEM TARTRATE 10 MG TABLET PO PRN (20:59)
[2020-01-17 06:43] VITALS: BP 143/98
[2020-01-17] MEDS: LORazepam 1 MG TABLET PO PRN ×3 (06:49→17:17)
[2020-01-17 08:00] VITALS: BP 128/77
[2020-01-17] MEDS: FOLIC ACID 1 MG TABLET PO SCH (09:52)
[2020-01-17] MEDS: BuPROPion HCL XL 150 MG ER TABLET PO SCH (09:52)
[2020-01-17] MEDS: PROPRANOLOL HCL 40 MG TABLET PO SCH (09:52)
[2020-01-17] MEDS: BusPIRone HCL 15 MG TABLET PO SCH ×2 (09:52→16:02)
[2020-01-17] MEDS: THIAMINE HCL 100 MG TABLET PO SCH ×2 (09:52→16:02)
[2020-01-17] MEDS: MULTIVITAMINS WITH MINERALS, THERAPEUTIC TABLET PO SCH (09:52)
[2020-01-17] MEDS: NICOTINE 21 MG/24 HOUR PATCH TD SCH (09:53)
[2020-01-17] MEDS: BENZOCAINE 10% 7 GM GEL TP SCH ×2 (09:54→16:02)
[2020-01-17 11:44] VITALS: BP 124/78
[2020-01-17] MEDS: IBUPROFEN 400 MG TABLET PO PRN (11:44)
[2020-01-17 16:14] VITALS: BP 140/80
[2020-01-17] MEDS: ACETAMINOPHEN 325 MG TABLET PO PRN (17:17)
[2020-01-17 18:36] VITALS: BP 136/78
[2020-01-17] MEDS: TraMADol HCL 50 MG TABLET PO PRN (18:36)
[2020-01-17] MEDS: QUEtiapine FUMARATE 100 MG TABLET PO SCH (20:02)
[2020-01-18 01:52] VITALS: BP 117/73
[2020-01-18] MEDS: LORazepam 1 MG TABLET PO PRN ×3 (08:19→19:04)
[2020-01-18] MEDS: TraMADol HCL 50 MG TABLET PO PRN ×2 (08:19→19:04)
[2020-01-18] MEDS: BuPROPion HCL XL 150 MG ER TABLET PO SCH (08:19)
[2020-01-18] MEDS: MULTIVITAMINS WITH MINERALS, THERAPEUTIC TABLET PO SCH (08:19)
[2020-01-18] MEDS: THIAMINE HCL 100 MG TABLET PO SCH ×2 (08:19→16:32)
[2020-01-18] MEDS: PROPRANOLOL HCL 40 MG TABLET PO SCH (08:20)
[2020-01-18] MEDS: FOLIC ACID 1 MG TABLET PO SCH (08:20)
[2020-01-18] MEDS: NICOTINE 21 MG/24 HOUR PATCH TD SCH (08:20)
[2020-01-18] MEDS: AMOX TR/POT CLAV 500 MG/125 MG TABLET PO SCH ×3 (08:34→16:32)
[2020-01-18] MEDS: BusPIRone HCL 15 MG TABLET PO SCH ×2 (08:34→16:32)
[2020-01-18] MEDS: BENZOCAINE 10% 7 GM GEL TP SCH ×2 (09:19→16:32)
[2020-01-18 10:00] VITALS: BP 131/86
[2020-01-18 16:25] VITALS: BP 133/88
[2020-01-18 19:04] VITALS: BP 140/90
[2020-01-18] MEDS: QUEtiapine FUMARATE 100 MG TABLET PO SCH (21:08)
[2020-01-19] MEDS ORDERED: QUET300T2 PO (05:18)
[2020-01-19] MEDS ORDERED: BUSP15 PO (05:21)
[2020-01-19] MEDS ORDERED: BUPR300T53 PO (05:24)
[2020-01-19] MEDS ORDERED: PROP40TA7 PO (05:25)
[2020-01-19] MEDS ORDERED: AMOX-426 PO (05:27)
[2020-01-19 05:38] VITALS: BP 136/82
[2020-01-19] MEDS: THIAMINE HCL 100 MG TABLET PO SCH (08:02)
[2020-01-19] MEDS: FOLIC ACID 1 MG TABLET PO SCH (08:02)
[2020-01-19] MEDS: MULTIVITAMINS WITH MINERALS, THERAPEUTIC TABLET PO SCH (08:02)
[2020-01-19] MEDS: PROPRANOLOL HCL 40 MG TABLET PO SCH (08:03)
[2020-01-19] MEDS: AMOX TR/POT CLAV 500 MG/125 MG TABLET PO SCH (08:03)
[2020-01-19] MEDS: BuPROPion HCL XL 150 MG ER TABLET PO SCH (08:03)
[2020-01-19] MEDS: BusPIRone HCL 15 MG TABLET PO SCH (08:03)
[2020-01-19] MEDS: NICOTINE 21 MG/24 HOUR PATCH TD SCH (08:03)
[2020-01-19] MEDS: BENZOCAINE 10% 7 GM GEL TP SCH (08:06)
[2020-01-19] MEDS ORDERED: BuPROPion HCL XL 150 MG ER TABLET PO SCH (09:00)
[2020-01-19] MEDS ORDERED: PROPRANOLOL HCL 40 MG TABLET PO SCH (09:00)
[2020-01-19] MEDS ORDERED: AMOX TR/POT CLAV 500 MG/125 MG TABLET PO SCH (09:00)
[2020-01-19] MEDS ORDERED: BusPIRone HCL 15 MG TABLET PO SCH (09:00)
[2020-01-19] MEDS ORDERED: QUEtiapine FUMARATE 300 MG TABLET PO SCH (21:00)
== END 2020-01-19 08:26 | disposition home or self-care (01) | DRG 750 ==
LOC: B2S 20:16
PROVIDERS: ADMIT Psychiatry & Neurology Child & Adolescent Psychiatry; ATTEND Psychiatry & Neurology Child & Adolescent Psychiatry
DX: F25.1 Schizoaffective disorder, depressive type (principal); N17.9 Acute kidney failure, unspecified; R45.851 Suicidal ideations; I10 Essential (primary) hypertension; K21.9 Gastro-esophageal reflux disease without esophagitis; Z81.8 Family history of other mental and behavioral disorders; E78.5 Hyperlipidemia, unspecified; F10.10 Alcohol abuse, uncomplicated; F41.9 Anxiety disorder, unspecified; G47.00 Insomnia, unspecified; K08.89 Other specified disorders of teeth and supporting structures
CPT/HCPCS: 83036; 84439; 84443; J3420; Q0162